=== PATIENT | male | born 1990 | race Caucasian/White ===

== ENCOUNTER 2016-12-16 22:14 | Emergency (ER) | payer OTHER ==
[~2016-12-16] VITALS: Ht 198.1 cm; Wt 145.2 kg
[~2016-12-16 22:14] MED LIST: BUSPIRONE HCL15 MG PO
[2016-12-16 22:37] LABS: ABSOLUTE BASOPHIL COUNT 0.1 /CUMM (0.0-0.2); ABSOLUTE EOSINOPHIL COUNT 0.2 /CUMM (0.0-0.7); ABSOLUTE GRANULOCYTE CT 5.4 /CUMM (1.4-6.5); ABSOLUTE LYMPH COUNT 2.8 /CUMM (1.2-3.4); ABSOLUTE MONOCYTE COUNT 0.6 /CUMM (0.10-0.60); BASOPHIL % 0.6 % (0.0-2.0); EOSINOPHIL % 2.2 % (0-5); GRANULOCYTE % 59.7 % (42.2-75.2); HEMATOCRIT 45.4 % (42-52); MEAN CORPUSCULAR HGB 30.9 PG (27.0-31.0); MEAN CORPUSCULAR HGB CONC 34.4 G/DL (33.0-37.0); MEAN CORPUSCULAR VOLUME 89.8 FL (80.0-94.0); MEAN PLATELET VOLUME 8.6 FL (7.4-10.4); PLATELET COUNT 216 /CUMM (130-400); RBC DISTRIBUTION WIDTH 12.9 % (11.5-14.5); RED BLOOD CELL CT 5.05 /CUMM (4.70-6.10)
--- NOTE | 2016-12-16 22:55 | ED GI/GU/ABDOMINAL COMPLAINT ---
History of Present Illness General Chief Complaint: Abdominal Pain/Flank Pain Stated Complaint: FEELS STOMACH IS INFLAMED,BLOOD IN STOOL Source: patient, family Exam Limitations: no limitations Vital Signs & Intake/Output Vital Signs & Intake/Output Vital Signs Date Time Temp Pulse Resp B/P Pulse O2 O2 Flow FiO2 Ox Delivery Rate 12/16 2335 98.0 70 18 112/75 98 Room Air 12/16 2221 98.3 66 16 101/70 97 Room Air ED Intake and Output 12/17 0000 12/16 1200 Intake Total Output Total Balance Patient 320 lb Weight Allergies Coded Allergies: NO KNOWN ALLERGIES (12/27/10) Reconcile Medications Buspirone Hydrochloride (Buspirone HCl) 15 MG TAB 1 TAB PO PRN PRN ANXIETY ( Reported) Oxycodone HCl/Acetaminophen (Percocet 5-325 MG Tablet) 5 MG-325 MG TABLET 1-2 TAB PO Q6P PRN PAIN Triage Note: 26 YEAR OLD MALE SATTES THAT HE HAD DENTAL WORK 2 WEEKS AGO AND HAS BEEN HAVING ALOT IOF DISCOMFORT SO HE HAS BEEN TAKING MOTRIN EVERYDAY. TODAY HE HAD 4 EPISODES OF LOOSE STOOL AND THE LAST 2 TIMES THERE WAS BRIGHT RED BLOOD. COMPLAINS OF ABD CRAMPING, DENIES N/V/ Triage Nurses Notes Reviewed? yes HPI: Patient had recent dental work and has been taking Motrin for the pain. Patient states he is taking a lot of Motrin throughout the day. Today patient noticed that he had bright red blood per rectum. Patient denies any abdominal pain. Patient states that his only happened once. There is been no nausea or vomiting. Patient comes in for evaluation. Past History Travel History Traveled to [place] past 21 day No Medical History Any Pertinent Medical History? 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 No Review of Systems Review of Systems Constitutional: Reports: no symptoms. EENTM: Reports: no symptoms. Respiratory: Reports: no symptoms. Cardiovascular: Reports: no symptoms. GI: Reports: see HPI, bloody stool. Genitourinary: Reports: no symptoms. Musculoskeletal: Reports: no symptoms. Skin: Reports: no symptoms. Neurological/Psychological: Reports: no symptoms. Hematologic/Endocrine: Reports: no symptoms. Immunologic/Allergic: Reports: no symptoms. All Other Systems: Reviewed and Negative Physical Exam Physical Exam General Appearance: well developed/nourished, alert, awake, mild distress Head: atraumatic, normal appearance Eyes: Bilateral: PERRL, EOMI. Ears, Nose, Throat, Mouth: hearing grossly normal, moist mucous membrane Neck: normal inspection, supple, full range of motion Respiratory: normal breath sounds, chest non-tender, no respiratory distress, lungs clear Cardiovascular: regular rate/rhythm, normal peripheral pulses Gastrointestinal: normal bowel sounds, soft, non-tender, no organomegaly Rectal: MINIMAL AMOUNT OF BRB, HEME POSITIVE Back: normal inspection Extremities: normal range of motion Neurologic/Psych: no motor/sensory deficits, awake, alert, oriented x 3, normal gait, normal mood/affect Skin: intact, normal color, warm/dry Core Measures ACS in differential dx? No Severe Sepsis Present: No Septic Shock Present: No Progress Differential Diagnosis: hemorrhoids, ischemic bowel, inflamm bowel dis, peptic ulcer, PUD/GERD Plan of Care: Orders Procedure Date/time Status COMPREHENSIVE METABOLIC PANEL 12/16 2225 Complete CBC WITHOUT DIFFERENTIAL 12/16 2225 Complete Laboratory Tests 12/16/16 2230: Anion Gap 8, Estimated GFR > 60, BUN/Creatinine Ratio 21.4, Glucose 91, Calcium 9.6, Total Bilirubin 0.9, AST 78 H, ALT 169 H, Alkaline Phosphatase 62, Total Protein 6.6, Albumin 4.2, Globulin 2.4, Albumin/Globulin Ratio 1.8, CBC w Diff NO MAN DIFF REQ, RBC 5.05, MCV 89.8, MCH 30.9, RDW 12.9, MPV 8.6, Gran % 59.7, Lymphocytes % 30.8, Monocytes % 6.7, Eosinophils % 2.2, Basophils % 0.6, Absolute Granulocytes 5.4, Absolute Lymphocytes 2.8, Absolute Monocytes 0.6, Absolute Eosinophils 0.2, Absolute Basophils 0.1, PUBS MCHC 34.4 Initial ED EKG: none Departure Departure Disposition: HOME OR SELF CARE Condition: Stable Clinical Impression Primary Impression: Lower GI bleed Referrals: JOSE KAUR,Genoveva MURPHY (PCP/Family) JIGAR MORENO MD Additional Instructions: STOP TAKING MOTRIN TAKE PERCOCET NEEDED FOR PAIN FOLLOW UP WITH DR. MORENO FROM GASTROENTEROLOGY RETURN FOR ANY CONCERNS Departure Forms: Customer Survey General Discharge Information Prescriptions: Current Visit Scripts Oxycodone HCl/Acetaminophen (Percocet 5-325 MG Tablet) 1-2 TAB PO Q6P PRN PAIN #20 TAB
[2016-12-16] MEDS ORDERED: PERCOCET 5-3251 EACH PO (23:26)
[2016-12-16 23:35] VITALS: BP 112/75
== END 2016-12-16 23:36 ==
LOC: ERH 22:14
PROVIDERS: Emergency Medicine
DX: K92.2 Gastrointestinal hemorrhage, unspecified (principal)

== ENCOUNTER 2018-01-03 17:17 | Emergency (ER) | payer OTHER ==
[~2018-01-03] VITALS: Ht 198.1 cm; Wt 145.2 kg
[~2018-01-03 17:17] MED LIST changes: +PERCOCET 5-3251 EACH PO
[2018-01-03 18:44] LABS: ABSOLUTE BASOPHIL COUNT 0 /CUMM (0.0-0.2); ABSOLUTE EOSINOPHIL COUNT 0.1 /CUMM (0.0-0.7); ABSOLUTE GRANULOCYTE CT 11.6 /CUMM (1.4-6.5); ABSOLUTE LYMPH COUNT 0.7 /CUMM (1.2-3.4); ABSOLUTE MONOCYTE COUNT 0.6 /CUMM (0.10-0.60); BASOPHIL % 0 % (0.0-2.0); EOSINOPHIL % 0.4 % (0-5); HEMATOCRIT 50.8 % (42-52); MEAN CORPUSCULAR HGB 30.7 PG (27.0-31.0); MEAN CORPUSCULAR HGB CONC 34.1 G/DL (33.0-37.0); MEAN CORPUSCULAR VOLUME 89.9 FL (80.0-94.0); MEAN PLATELET VOLUME 8.4 FL (7.4-10.4); PLATELET COUNT 243 /CUMM (130-400); RBC DISTRIBUTION WIDTH 12.5 % (11.5-14.5); RED BLOOD CELL CT 5.65 /CUMM (4.70-6.10)
[2018-01-03 18:45] LABS: GRANULOCYTE % 89.5 % (42.2-75.2)
--- NOTE | 2018-01-03 19:33 | ED GI/GU/ABDOMINAL COMPLAINT ---
History of Present Illness General Chief Complaint: General Adult Stated Complaint: +V, POTENTIAL FOOD POISONING PER PT Source: patient Exam Limitations: no limitations Vital Signs & Intake/Output Vital Signs & Intake/Output Vital Signs Date Time Temp Pulse Resp B/P B/P Pulse O2 O2 Flow FiO2 Mean Ox Delivery Rate 01/03 1746 98.8 108 16 102/71 97 Room Air Allergies Coded Allergies: NO KNOWN ALLERGIES (12/27/10) Reconcile Medications Buspirone Hydrochloride (Buspirone HCl) 15 MG TAB 1 TAB PO PRN PRN ANXIETY ( Reported) Oxycodone HCl/Acetaminophen (Percocet 5-325 MG Tablet) 5 MG-325 MG TABLET 1-2 TAB PO Q6P PRN PAIN Triage Note: PT C/O +N/+V NON STOP. PT STATES THAT HE IS NOW HAVING DIFF BREATHING PER PT "I THINK ITS BECAUSE I STRAINED TO MUCH" ONSET 729 THIS AM. PT STATES THAT HE HAS CHEST PAIN 4/10 WHEN HE TAKES A BREATH. Triage Nurses Notes Reviewed? 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 Surgical History Surgical History: non-contributory Psychosocial History What is your primary language Frisian Tobacco Use: Never used Progress Plan of Care: Orders Procedure Date/time Status Add-on Test (ER Only) 01/04 1932 Active XRY-PORTABLE CHEST XRAY 01/04 1804 Active RAPID VIRAL INFLUENZA A 01/04 1804 Complete URINE DRUG SCREEN FOR ER ONLY 01/04 1804 Active URINALYSIS 01/04 1804 Active TROPONIN LEVEL 01/04 1804 Complete COMPREHENSIVE METABOLIC PANEL 01/04 1804 Complete CBC WITHOUT DIFFERENTIAL 01/04 1804 Complete EKG 01/03 1747 Active Laboratory Tests 01/03/18 1924: Urine Color Pending, Urine Clarity Pending, Urine pH Pending, Ur Specific [place] Pending, Urine Protein Pending, Urine Ketones Pending, Urine Nitrite Pending, Urine Bilirubin Pending, Urine Urobilinogen Pending, Ur Leukocyte Esterase Pending, Ur Microscopic Pending, Urine Hemoglobin Pending, Urine Glucose Pending 01/03/18 1830: Anion Gap 11, Estimated GFR > 60, BUN/Creatinine Ratio 20.0, Glucose 109 H, Calcium 9.5, Total Bilirubin 1.4 H, AST 36, ALT 88 H, Alkaline Phosphatase 60, Troponin I < 0.01, Total Protein 7.0, Albumin 4.5, Globulin 2.5, Albumin/ Globulin Ratio 1.8, CBC w Diff NO MAN DIFF REQ, RBC 5.65, MCV 89.9, MCH 30.7, MCHC 34.1, RDW 12.5, MPV 8.4, Gran % 89.5 H, Lymphocytes % 5.3 L, Monocytes % 4.8, Eosinophils % 0.4, Basophils % 0, Absolute Granulocytes 11.6 H, Absolute Lymphocytes 0.7 L, Absolute Monocytes 0.6, Absolute Eosinophils 0.1, Absolute Basophils 0 Microbiology 01/03 1831 NASOPHARYN: Influenza Virus A & B Rapid Smear - COMP Departure Departure Condition: Stable Referrals: Genoveva Bowman MD (PCP/Family) Departure Forms: Customer Survey General Discharge Information
[2018-01-03 19:46] VITALS: BP 116/64
--- NOTE | 2018-01-03 20:29 | RADIOLOGY REPORT ---
EXAMINATION: XR PORTABLE CHEST CLINICAL INFORMATION: Fever with cough. COMPARISON: None TECHNIQUE: Portable frontal view of the chest was obtained. FINDINGS: The lungs are clear. No pleural effusion. Cardiomediastinal silhouette and pulmonary vasculature are within normal limits. No acute osseous finding. IMPRESSION: No acute cardiopulmonary disease.
--- NOTE | 2018-01-03 20:35 | ED GI/GU/ABDOMINAL COMPLAINT ---
History of Present Illness General Chief Complaint: General Adult Stated Complaint: +V, POTENTIAL FOOD POISONING PER PT Source: patient, family Exam Limitations: no limitations Vital Signs & Intake/Output Vital Signs & Intake/Output Vital Signs Date Time Temp Pulse Resp B/P B/P Pulse O2 O2 Flow FiO2 Mean Ox Delivery Rate 01/03 1946 103 16 116/64 98 Room Air 01/03 1746 98.8 108 16 102/71 97 Room Air Allergies Coded Allergies: NO KNOWN ALLERGIES (12/27/10) Reconcile Medications Buspirone Hydrochloride (Buspirone HCl) 15 MG TAB 1 TAB PO PRN PRN ANXIETY ( Reported) Oxycodone HCl/Acetaminophen (Percocet 5-325 MG Tablet) 5 MG-325 MG TABLET 1-2 TAB PO Q6P PRN PAIN Triage Note: PT C/O +N/+V NON STOP. PT STATES THAT HE IS NOW HAVING DIFF BREATHING PER PT "I THINK ITS BECAUSE I STRAINED TO MUCH" ONSET 0730 THIS AM. PT STATES THAT HE HAS CHEST PAIN 4/10 WHEN HE TAKES A BREATH. Triage Nurses Notes Reviewed? yes HPI: 27M no PMH with intractable nausea and vomiting since this morning, unable to keep any food or water down. Has had 2 small episodes of loose stools. Has diffuse abdominal cramping, feels dehydrated. He experienced left sided chest pain when vomiting and now has left chest wall soreness. He has not noted any blood in his vomit or stool. No recent travel, no sick contacts. Ate an undercooked burger last night, but so did others and no one else is sick. Denies fever, chills, headache, sore throat, SOB, dysuria. Past History Travel History Traveled to [place] past 21 day No Medical History Any Pertinent Medical History? 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 No Review of Systems Review of Systems Constitutional: Reports: no symptoms. EENTM: Reports: no symptoms. Respiratory: Reports: no symptoms. Cardiovascular: Reports: no symptoms. GI: Reports: no symptoms. Genitourinary: Reports: no symptoms. Musculoskeletal: Reports: no symptoms. Skin: Reports: no symptoms. Neurological/Psychological: Reports: no symptoms. Hematologic/Endocrine: Reports: no symptoms. Immunologic/Allergic: Reports: no symptoms. All Other Systems: Reviewed and Negative Physical Exam Physical Exam General Appearance: well developed/nourished, no apparent distress Head: atraumatic, normal appearance Eyes: Bilateral: normal appearance. Ears, Nose, Throat, Mouth: hearing grossly normal, moist mucous membrane Neck: normal inspection, supple, full range of motion Respiratory: normal breath sounds, no respiratory distress Cardiovascular: regular rate/rhythm Gastrointestinal: soft, non-tender Back: normal inspection, normal range of motion Extremities: normal range of motion Neurologic/Psych: awake, alert, oriented x 3, normal mood/affect Skin: intact, normal color, warm/dry Core Measures ACS in differential dx? No Sepsis Present: No Sepsis Focused Exam Completed? No Progress Differential Diagnosis: AAA, AMI, appendicitis, biliary colic, bowel obstruction , colon cancer, cholecystitis, diverticulitis, epididymitis, esophageal varices, gastritis, hepatitis, hernia, hemorrhoids, ischemic bowel, inflamm bowel dis, Kaylah-Katheryn tear, orchitis, pancreatitis, prostatitis, peptic ulcer, PUD/GERD, perforated viscous, pyelonephritis, SBO, STD, testicular torsion, ureterolithiasis, urinary retention, urethritis, UTI/pyelo Plan of Care: Orders Procedure Date/time Status Add-on Test (ER Only) 01/03 1932 Active LIPASE 01/03 1830 Complete AMYLASE 01/03 1830 Complete RAPID VIRAL INFLUENZA A 01/03 1804 Complete URINE DRUG SCREEN FOR ER ONLY 01/03 1804 Complete URINALYSIS 01/03 1804 Complete TROPONIN LEVEL 01/03 180 Complete COMPREHENSIVE METABOLIC PANEL 01/03 180 Complete CBC WITHOUT DIFFERENTIAL 01/03 180 Complete EKG 01/03 1747 Active Current Medications Sig/Trino Start time Last Medication Dose Stop Time Status Admin Sodium Chloride 1,000 ML BOLUS ONE 01/03 2015 AC 01/03 (Normal Saline 0.9%) 01/03 Sodium Chloride 1,000 ML BOLUS ONE 01/03 2015 AC (Normal Saline 0.9%) 01/03 2114 Laboratory Tests 01/03/18 1924: Urine Opiates Screen < 100, Methadone Screen < 40, Barbiturate Screen < 60, Ur Phencyclidine Scrn < 6.00, Amphetamines Screen < 100, U Benzodiazepines Scrn < 85, Urine Cocaine Screen < 50, Urine Cannabis Screen 27.70, Urine Color YEL, Urine Clarity CLEAR, Urine pH 8.0, Ur Specific [place] 1.015, Urine Protein TRACE H, Urine Ketones NEG, Urine Nitrite NEG, Urine Bilirubin NEG, Urine Urobilinogen 0.2, Ur Leukocyte Esterase NEG, Ur Microscopic SEDIMENT EXAMINED, Urine RBC 1-3, Urine WBC RARE, Ur Epithelial Cells RARE, Urine Bacteria RARE H, Urine Mucus FEW, Urine Hemoglobin NEG, Urine Glucose NEG 01/03/18 1830: Anion Gap 11, Estimated GFR > 60, BUN/Creatinine Ratio 20.0, Glucose 109 H, Calcium 9.5, Total Bilirubin 1.4 H, AST 36, ALT 88 H, Alkaline Phosphatase 60, Troponin I < 0.01, Total Protein 7.0, Albumin 4.5, Globulin 2.5, Albumin/ Globulin Ratio 1.8, Amylase 56, Lipase 60, CBC w Diff NO MAN DIFF REQ, RBC 5.65, MCV 89.9, MCH 30.7, MCHC 34.1, RDW 12.5, MPV 8.4, Gran % 89.5 H, Lymphocytes % 5.3 L, Monocytes % 4.8, Eosinophils % 0.4, Basophils % 0, Absolute Granulocytes 11.6 H, Absolute Lymphocytes 0.7 L, Absolute Monocytes 0.6, Absolute Eosinophils 0.1, Absolute Basophils 0 Microbiology 01/03 1831 NASOPHARYN: Influenza Virus A & B Rapid Smear - COMP Initial ED EKG: normal sinus rhythm, no ST T wave changes Departure Departure Disposition: HOME OR SELF CARE Condition: Stable Clinical Impression Primary Impression: Acute gastroenteritis Referrals: Colby KAUR,MSebastien Fierro (PCP/Family) Additional Instructions: Follow up with your PCP. Stay well hydrated. Return to ER if new or worsening symptoms. Departure Forms: Customer Survey General Discharge Information Prescriptions: Current Visit Scripts Ondansetron (Ondansetron Odt) 1 TAB PO Q8P PRN NAUSEA #15 TAB
[2018-01-03] MEDS ORDERED: ONDANSETRON ODT4 M1 PO (20:52)
== END 2018-01-03 23:06 ==
LOC: ERH 17:17
PROVIDERS: Internal Medicine
DX: K52.9 Noninfective gastroenteritis and colitis, unspecified (principal); R10.9 Unspecified abdominal pain; R07.89 Other chest pain
CPT/HCPCS: 71045; 80307; 81001; 87804; 87804-59; 93005; 93010; 96361; 96374; J2405